=== PATIENT | female | born 1965 ===

== ENCOUNTER 2020-09-19 08:07 | Outpatient (CLI) | payer OTHER ==
[2020-09-19] MEDS ORDERED: PERCOCET 10-321 EACH PO (08:16)
[2020-09-19] MEDS ORDERED: FLEXERIL (08:16)
== END 2020-09-19 08:14 | disposition home or self-care (01) ==
LOC: RAD 08:07
PROVIDERS: ATTEND Orthopaedic Surgery Hand Surgery
DX: I10 Essential (primary) hypertension (principal)

== ENCOUNTER 2020-09-25 06:55 | Day surgery (SDC) | payer OTHER ==
[~2020-09-25 06:55] MED LIST: FLEXERIL; PERCOCET 10-321 EACH PO
== END 2020-09-25 19:15 | disposition home or self-care (01) ==
LOC: CIR.AMB 06:55
PROVIDERS: ATTEND Orthopaedic Surgery Hand Surgery
DX: M24.832 Other specific joint derangements of left wrist, not elsewhere classified (principal); S62.17 Fracture of trapezium [larger multangular]; Z20.822 Contact with and (suspected) exposure to COVID-19
CPT/HCPCS: 25405; 29846; C1776